=== PATIENT | female | born 1950 | race Two or more races ===

== ENCOUNTER 2024-04-14 13:48 | Inpatient (IN) | payer MEDICARE, MEDICAID ==
[~2024-04-14] VITALS: Ht 160 cm; Wt 63.5 kg
[~2024-04-14 13:48] MED LIST: AMLO1TAB23 PO; ASPI-543 PO; FENO160T PO; LIOT5TAB31 PO; METO-289 PO; OMEP1CAP70 PO; POTA-228 PO; SIMV20TA20 PO; SOLI5TAB42 PO; VENL1TAB99 PO
[2024-04-14 14:39] LABS: Chloride 103 mmol/L (98-107); Potassium 3.2 mmol/L (3.5-5.1); Sodium 139 mmol/L (136-145)
[2024-04-14 14:40] LABS: Anion Gap 8 (5-15); Carbon Dioxide 28 mmol/L (20-31)
[2024-04-14 14:41] LABS: Calcium 8.5 mg/dL (8.7-10.4)
[2024-04-14 14:46] LABS: BUN/Creatinine Ratio 17.8 (10.0-20.0); Blood Urea Nitrogen 8 mg/dL (9-23); Glucose 116 mg/dL (74-106)
[2024-04-14 15:21] LABS: Basophils # (auto) 0.1 10 ^3/uL (0-0.2); Basophils % (auto) 0.5 % (0.0-2.0); Eosinophils # (auto) 0 10 ^3/uL (0-0.8); Hemoglobin 11.5 g/dL (12.2-16.2); Lymphocytes # (auto) 1.3 10 ^3/uL (0.4-5.4); Monocytes # (auto) 0.6 10 ^3/uL (0-1.3); Red Cell Distribution Width 15.9 % (11.8-14.3)
[2024-04-14 15:23] LABS: Eosinophils % (auto) 0.3 % (0.0-7.0); Hematocrit 34.7 % (36.0-46.0); Lymphocytes % (auto) 13.7 % (10.0-50.0); Mean Corpuscular Hemoglobin 34.4 pg (28.0-32.0); Mean Corpuscular Hgb Conc. 33.2 g/dL (32.0-36.0); Mean Corpuscular Volume 103.4 fL (80.0-100.0); Monocytes % (auto) 6.2 % (0.0-12.0); Neutrophils # (auto) 7.5 10 ^3/uL (1.6-8.6); Neutrophils % (auto) 79.3 % (37.0-80.0); Nucleated Red Blood Cells % 0.3 %; Platelet Count (auto) 273 10^3/uL (140-450); Red Blood Cells 3.35 10^6/uL (4.0-5.20); White Blood Cell 9.5 10^3/uL (4.4-10.8)
[2024-04-14] MEDS: SODIUM CHLORIDE 0.9% 500 ML IV ONE (15:34)
[2024-04-14] MEDS: LORazepam 2MG/ML-1ML VIAL IV ONE (15:34)
[2024-04-14] MEDS: MORPHINE SULFATE 4 MG/ML SYR/VIAL IV ONE (20:24)
[2024-04-14] MEDS: ONDANSETRON HCL 4 MG/2 ML VIAL IV ONE (20:25)
[2024-04-14 20:30] VITALS: PULSE 120; RESP 23; O2SAT 94
[2024-04-14] MEDS ORDERED: MORPHINE SULFATE INJ 2 MG/ml SYRG IV PRN (20:30)
[2024-04-14] MEDS ORDERED: ONDANSETRON HCL 4 MG/2 ML VIAL IV PRN (20:30)
[2024-04-14] MEDS ORDERED: HYDROcodone-ACET 5/325MG TAB PO PRN (20:30)
[2024-04-14] MEDS ORDERED: NITROGLYCERIN 0.4 MG SL TAB SL PRN (20:30)
[2024-04-14] MEDS ORDERED: DOCUSATE SOD 100 MG CAP PO PRN (20:30)
[2024-04-14] MEDS ORDERED: diphenhdrAMINE HCL 50 MG/1 ML VL IV PRN (20:30)
[2024-04-14] MEDS ORDERED: ACETAMINOPHEN 325 MG TAB PO PRN (20:30)
[2024-04-14] MEDS: FUROSEMIDE 40 MG/4 ML VIAL IV ONE (21:21)
[2024-04-14] MEDS: ATORVASTATIN 20 MG TAB PO SCH (22:00)
[2024-04-14] MEDS: CARVEDILOL 3.125 MG TAB PO SCH (22:00)
[2024-04-14 22:09] LABS: Urine Bacteria FEW /hpf (None Seen); Urine Blood Negative /uL (Negative); Urine Budding Yeast OCCASIONAL /hpf (None Seen); Urine Clarity Turbid (Clear); Urine Color Yellow (Yellow); Urine Protein, UAD Negative (Negative); Urine Specific Gravity 1.009 (1.001-1.035); Urine Urobilinogen Normal (Negative); Urine WBC 55 /hpf (0 - 5)
[2024-04-14] MEDS: SODIUM CHLOR 0.9% PF (SALINE LOCK) 10ML VIAL/SYR IV SCH (22:27)
[2024-04-14] MEDS: FAMOTIDINE (10MG/ML) 2ML VL IV SCH (22:42)
[2024-04-15 00:10] VITALS: PULSE 123; RESP 12; O2SAT 100
[2024-04-15] MEDS: POTASSIUM CHL 20 Meq TABLET PO ONE (00:20)
[2024-04-15] MEDS: SODIUM CHLORIDE 0.9% 1,000 ML IV ONE (00:24)
[2024-04-15 03:35] LABS: Basophils # (auto) 0 10 ^3/uL (0-0.2); Basophils % (auto) 0.4 % (0.0-2.0); Eosinophils # (auto) 0.1 10 ^3/uL (0-0.8); Eosinophils % (auto) 1.7 % (0.0-7.0); Hematocrit 34.1 % (36.0-46.0); Hemoglobin 11.8 g/dL (12.2-16.2); Lymphocytes # (auto) 1.2 10 ^3/uL (0.4-5.4); Mean Corpuscular Hemoglobin 35.4 pg (28.0-32.0); Mean Corpuscular Hgb Conc. 34.5 g/dL (32.0-36.0); Mean Corpuscular Volume 102.6 fL (80.0-100.0); Monocytes # (auto) 0.5 10 ^3/uL (0-1.3); Monocytes % (auto) 7.6 % (0.0-12.0); Neutrophils # (auto) 5.2 10 ^3/uL (1.6-8.6); Neutrophils % (auto) 73.3 % (37.0-80.0); Nucleated Red Blood Cells % 0.2 %; Platelet Count (auto) 240 10^3/uL (140-450); Red Blood Cells 3.33 10^6/uL (4.0-5.20); Red Cell Distribution Width 15.6 % (11.8-14.3); White Blood Cell 7.1 10^3/uL (4.4-10.8)
[2024-04-15 03:40] LABS: Alanine Aminotransferase 17 U/L (7-40); Albumin 2.9 g/dL (3.2-4.8); Alkaline Phosphatase 174 U/L (46-116); Anion Gap 6 (5-15); Aspartate Aminotransferase 32 U/L (13-40); BUN/Creatinine Ratio 16.2 (10.0-20.0); Bilirubin, Total 1.2 mg/dL (0.2-1.0); Blood Urea Nitrogen 6 mg/dL (9-23); Calcium 8.1 mg/dL (8.7-10.4); Carbon Dioxide 32 mmol/L (20-31); Chloride 104 mmol/L (98-107); Glucose 85 mg/dL (74-106); Sodium 142 mmol/L (136-145); Total Protein 6.5 g/dL (5.7-8.2)
[2024-04-15] MEDS: LEVOTHYROXINE SODIUM 25 MCG TAB PO SCH (05:21)
[2024-04-15] MEDS ORDERED: D5W/SOD CHL 0.45%/KCL 20MEQ 1,000 ML IV SCH (06:45)
[2024-04-15] MEDS: D5W/SOD CHL 0.45%/KCL 20MEQ 1,000 ML IV SCH (07:01)
[2024-04-15 07:22] VITALS: RESP 12; O2SAT 100
[2024-04-15] MEDS: FUROSEMIDE 40 MG/4 ML VIAL IV SCH (11:26)
[2024-04-15] MEDS: cefTRIAXone 1GM/50ML D5W 50 ML IV ONE (11:26)
[2024-04-15] MEDS: ASPirin 81 mg TAB PO SCH (11:27)
[2024-04-15] MEDS: ENOXAPARIN SOD 40 MG/0.4 ML SYRINGE SC ONE (19:03)
[2024-04-15] MEDS: AZITHROMYCIN 500MG/ 250ML 250 ML IV ONE (19:03)
[2024-04-15 20:07] VITALS: BP 132/55; PULSE 92; RESP 18; TEMP 97.8; O2SAT 100
[2024-04-15 21:00] VITALS: BP 116/63; PULSE 89; RESP 18; TEMP 97.6; O2SAT 100
[2024-04-16] VITALS (8 sets, daily range): BP systolic 107–139; BP diastolic 47–81; PULSE 80–98; RESP 16–18; TEMP 97–99.6; O2SAT 96–100
[2024-04-16 07:37] LABS: Chloride 105 mmol/L (98-107); Potassium 2.6 mmol/L (3.5-5.1); Sodium 142 mmol/L (136-145)
[2024-04-16 07:38] LABS: Anion Gap 7 (5-15); Calcium 7.9 mg/dL (8.7-10.4); Carbon Dioxide 30 mmol/L (20-31)
[2024-04-16 07:43] LABS: Glucose 126 mg/dL (74-106)
[2024-04-16 07:44] LABS: BUN/Creatinine Ratio 17.2 (10.0-20.0); Blood Urea Nitrogen < 5 mg/dL (9-23)
[2024-04-16] MEDS ORDERED: POTA-220 PO (09:27)
[2024-04-16] MEDS ORDERED: LIOT1POW XX (09:27)
[2024-04-16] MEDS ORDERED: FURO40TA4 PO (09:27)
[2024-04-16] MEDS ORDERED: LEVO25TA6 PO (09:32)
[2024-04-16 09:35] LABS: Amphetamine Screen, Urine Neg (NEGATIVE); Barbiturate Scree,Urine Neg (NEGATIVE); Benzodiazephine Screen, Urine Neg (NEGATIVE); Cannabinoid Screen, Urine Neg (NEGATIVE); Cocaine Screen, Urine Neg (NEGATIVE); Opiate Scree,Urine Pos (NEGATIVE); Phencyclidine Screen, Urine Neg (NEGATIVE)
[2024-04-16] MEDS ORDERED: [UNRECOGNIZED DRUG - CODE] PO (09:39)
[2024-04-16] MEDS ORDERED: OMEP-434 PO (09:39)
[2024-04-16] MEDS: MAGNESIUM SULFATE 1GM/100ML 100 ML IV ONE (10:47)
[2024-04-16] MEDS: POTASSIUM CHL 20MEQ/100ML 100 ML IV SCH (10:48)
[2024-04-16] MEDS ORDERED: POTASSIUM CHL 20 Meq TABLET PO ONE (11:00)
[2024-04-16] MEDS: POTASSIUM EFFERVESENT TAB 25 MEQ PO ONE (11:55)
[2024-04-16] MEDS: ENOXAPARIN SOD 40 MG/0.4 ML SYRINGE SC SCH (12:05)
[2024-04-16] MEDS: cefTRIAXone 1GM/50ML D5W 50 ML IV SCH (12:11)
[2024-04-16] MEDS: IOHEXOL 350 MG/ML 100ML IJ ONE (12:57)
[2024-04-16] MEDS: AZITHROMYCIN 500MG/ 250ML 250 ML IV SCH (21:52)
[2024-04-16] MEDS ORDERED: POTASSIUM CHL 20 Meq TABLET PO SCH (22:00)
[2024-04-17 00:06] VITALS: BP 123/54; PULSE 67; RESP 16; TEMP 99.1; O2SAT 100
[2024-04-17 06:56] LABS: Chloride 107 mmol/L (98-107); Potassium 3.7 mmol/L (3.5-5.1); Sodium 141 mmol/L (136-145)
[2024-04-17 06:57] LABS: Anion Gap 5 (5-15); Carbon Dioxide 29 mmol/L (20-31)
[2024-04-17 06:58] LABS: Calcium 8.2 mg/dL (8.7-10.4)
[2024-04-17 07:02] LABS: Glucose 94 mg/dL (74-106)
[2024-04-17 07:03] LABS: BUN/Creatinine Ratio 15.2 (10.0-20.0); Blood Urea Nitrogen < 5 mg/dL (9-23)
[2024-04-17 08:10] VITALS: PULSE 94
[2024-04-17 09:00] VITALS: BP 129/57; PULSE 92; RESP 17; TEMP 98.6; O2SAT 99
[2024-04-17] MEDS: POTASSIUM CHL 10 Meq TABLET PO SCH (09:29)
[2024-04-17] MEDS ORDERED: POTASSIUM CHL 20 Meq TABLET PO SCH (10:00)
[2024-04-17 15:39] VITALS: BP 129/57; PULSE 92; RESP 17; TEMP 98.6; O2SAT 99
[2024-04-17] MEDS ORDERED: CIPR-173 PO (16:50)
[2024-04-17 17:00] VITALS: BP 114/55; PULSE 97; RESP 16; TEMP 98.5; O2SAT 92
== END 2024-04-17 19:44 | disposition home health service (06) | DRG 91 ==
LOC: EDBD 13:48 → ER 13:48 → TELE 20:37 → TELE-WESTW 04-15 19:26
PROVIDERS: ADMIT Internal Medicine; ATTEND Internal Medicine
DX: G92.8 Other toxic encephalopathy (principal); J15.69 Pneumonia due to other Gram-negative bacteria; J15.9 Unspecified bacterial pneumonia; N39.0 Urinary tract infection, site not specified; I50.32 Chronic diastolic (congestive) heart failure; K21.9 Gastro-esophageal reflux disease without esophagitis; I25.10 Atherosclerotic heart disease of native coronary artery without angina pectoris; E87.6 Hypokalemia; E03.9 Hypothyroidism, unspecified; I11.0 Hypertensive heart disease with heart failure; M81.0 Age-related osteoporosis without current pathological fracture; E78.5 Hyperlipidemia, unspecified; Z99.3 Dependence on wheelchair; Z79.899 Other long term (current) drug therapy
CPT/HCPCS: 36415; 70450; 71045; 71275; 80048; 80053; 80307; 81001; 82306; 82607; 82962; 83605; 83735; 83880; 84132; 84484; 85025; 85379; 87040; 87081; 87086; 92610; 93005; 93306; 93970; 97163; G0378; J2405; J3480; J3490